=== PATIENT | male | born 1995 | race Caucasian/White ===

== ENCOUNTER 2025-05-11 20:19 | Emergency (ER) | payer MEDICAID, SELFPAY ==
--- NOTE | ~2025-05-11 | XR_ITS ---
CLINICAL HISTORY: Fall; Rib Pain Bilateral Frontal chest and bilateral ribs three views Comparison: None provided Findings: Lungs are clear without acute infiltrates. Heart size is normal. No pneumothorax. No acute fracture or dislocation in the rib cage. No significant focal bony abnormalities. Impression: No significant abnormalities This document has been electronically signed by: Milad Vanegas MD on 05/11/2025 23:19:44
--- NOTE | ~2025-05-11 | CT_ITS ---
CLINICAL HISTORY: Fall; Head Strike CT cervical spine without contrast Comparison: None provided Findings: No acute fracture or dislocation. Posterior alignment is normal. No significant degenerative change. No radiopaque foreign bodies. Impression: No acute processes This document has been electronically signed by: Milad Vanegas MD on 05/11/2025 21:54:37
--- NOTE | ~2025-05-11 | CT_ITS ---
CLINICAL HISTORY: Headache; Fall; Headstrike CT head without contrast Comparison: None provided Findings: No intracranial mass, midline shift, hydrocephalus, or acute hemorrhage. No acute process in sinuses or mastoids. No acute bony abnormality. Impression: No acute intracranial process This document has been electronically signed by: Milad Vanegas MD on 05/11/2025 21:52:58
[2025-05-11 20:29] VITALS: BP 131/86; BP 160/120; PULSE 103; PULSE 108; RESP 19; TEMP 36.9; O2SAT 95; O2SAT 97; BMI 25.2
--- NOTE | 2025-05-11 20:40 | PC.NURSE ---
Patient refused IV line insertion and lab draw. Donte, ED provider made aware.
--- NOTE | 2025-05-11 21:37 | PC.NURSE ---
Patient returned back to ED [address], PD staff at bedside.
[2025-05-11 22:00] VITALS: BP 129/78; PULSE 81; RESP 16; TEMP 36.8; O2SAT 96
--- NOTE | 2025-05-11 23:00 | ED_ITS ---
HPI - General Adult General Chief complaint: General Medical Stated complaint: in PC, tackled by pd, knee/forehead abrasions Time Seen by Provider: 05/11/25 20:58 Source: patient and police Mode of arrival: EMS Limitations: no limitations History of Present Illness ED Provider: Donte MCLAUGHLIN HPI narrative: The patient is a 30-year-old male presenting to the ED via EMS in police custody for evaluation of multiple complaints. The patient reportedly was running from police when he was tackled to the ground resulting in a reported head strike without LOC, patient denies any use of anticoagulants. The patient presents to the ED for evaluation of headache, neck pain, upper back pain, and bilateral ribcage pain. The patient also reports he is feeling nauseous and suffered abrasions to his bilateral knees and right cheek. The patient denies any other recent injury, denies associated chest pain, shortness of breath, fever/chills, vomiting, abdominal pain or other acute complaint. Patient arrives with cervical collar applied by EMS. Related Data Previous Rx's ?Medication ?Instructions ?Recorded acetaminophen 500 mg capsule 1,000 mg (2 x 500 mg) PO .q8 PRN 05/12/25 fever or pain #30 caps ibuprofen 600 mg tablet 600 mg PO Q8H PRN fever or p ain 05/12/25 #30 tabs Allergies Allergy/AdvReac Type Severity Reaction Status Date / Time No Known Allergies Allergy Verified 05/11/25 20:31 Review of Systems Review of Systems: Yes all other systems are reviewed and are negative PMFSH Social History Social History Smoked in Last 30 Days: Yes Use of substances other than those prescribed or required for medical reasons: No Advance Directives: No Advance Directives Information Provided: Yes Physical Exam ED Vital Signs: Vital Signs - 24 hr 05/11/25 20:29 05/11/25 22:00 05/12/25 00:00 Temperature 98.4 F 98.2 F 97.7 F Pulse Rate 103 H 81 75 Respiratory Rate 19 16 16 Blood Pressure 131/86 129/78 119/67 Pulse Oximetry 95 96 95 Oxygen Delivery Method Room Air Room Air Room Air BMI result Body Mass Index 25.2 CONSTITUTIONAL: The patient appears non-toxic, well nourished and in no acute distress. Vital signs as documented. HEAD: Atraumatic, normocephalic. EYES: EOMs grossly intact, pupils equal, conjunctiva clear, no exudate. ENT: Nares patent, no discharge. Airway patent, no audible stridor, visible mucosa is pink and moist without noted lesions. NECK: Trachea is midline, no obvious masses or gross abnormalities. CHEST: Symmetric movement, normal appearance. Patient reports generalized tenderness of the bilateral ribcage, there is no appreciated crepitus, flail chest, or other deformity. LUNGS: LS present and CTAB, no w/r/r. Non-labored work of breathing. CARDIAC: Regular Rhythm, S1/S2 appreciated, no murmurs, rubs or gallops. ABDOMEN: Abdomen soft and non-tender x4 quadrants, no palpable masses or organomegaly. : Deferred. EXTREMITIES: Normal tone, moves all extremities spontaneously without reported pain. There are superficial abrasions noted to the bilateral inferior knees, distal CSM intact, no other obvious acute injury or deformity noted. NEURO: Alert and oriented x3, CN II-XII appear grossly intact. Cerebellar Functioning grossly intact. No obvious sensory or motor deficits. Speech clear and appropriate. PSYCH: Slightly agitated affect, but otherwise with appropriate eye contact, fluid speech, with appropriate response to questioning. No reported suicidality or homicidality. SKIN: Warm, dry, color appropriate, normal turgor. No rashes noted. Medical Decision Making Medical Decision Making MDM Narrative: 11:04 PM 05/11/2025 (Hu MCLAUGHLIN): The patient is a 30-year-old male presenting to the ED via EMS in police custody for evaluation of multiple complaints after being tackled to the ground while running from the police. The patient reports headache, neck pain, bilateral rib pain, and abrasions to the bilateral superior shins. The patient is agitated on exam, but ultimately cooperative. Patient's exam reveals no crepitus of the chest or sternum, no adventitious lung sounds. The patient is moving all extremities. Of note the patient at 1 time began shaking diffusely and rolling onto his side, this provider was at bedside for this incident and patient was breathing throughout this tremulous activity, no urinary incontinence, biting of the tongue, or DVT and gaze with the eyes. The patient was actively fighting opening of the eyelids, and volitionally looking away from this provider during the shaking activity. The patient was on SpO2 during the activity and oxygen saturation never dropped below 95%. Shortly after reassurance by staff, the patient is shaking activity stopped and patient began yelling that he wanted to be moved away from the officers because he did not like them. The patient's episode was consistent with attempted malingering/in-person nation of seizure activity, there was no evidence of true tonic-clonic activity, no postictal period, no concern for seizure. The patient is symptoms were evaluated with CT head and neck which at this time have resulted and showed no evidence of acute intracranial pathology, no acute fracture throughout. The patient's rib x-rays have been obtained and are awaiting interpretation. The patient has had no additional shaking since the initial episode. 11:56 PM 05/11/2025 (Hu MCLAUGHLIN): Patient's rib films are negative for acute fracture. The patient is likely suffering from abrasions, bumps, and bruises. The patient will be discharged to police custody with instructions to follow up with PCP when able. Admission/Observation Consideration of admission/observation: Escalation of care including admission/observation considered Radiology Impression Discussion of test interpretation with radiology: I have reviewed the radiologist's reading. Radiologist Impression: CLINICAL HISTORY: Headache; Fall; Headstrike CT head without contrast Comparison: None provided Findings: No intracranial mass, midline shift, hydrocephalus, or acute hemorrhage. No acute process in sinuses or mastoids. No acute bony abnormality. Impression: No acute intracranial process This document has been electronically signed by: Milad Vanegas MD on 05/11/2025 21:52:58 CLINICAL HISTORY: Fall; Head Strike CT cervical spine without contrast Comparison: None provided Findings: No acute fracture or dislocation. Posterior alignment is normal. No significant degenerative change. No radiopaque foreign bodies. Impression: No acute processes This document has been electronically signed by: Milad Vanegas MD on 05/11/2025 21:54:37 CLINICAL HISTORY: Fall; Rib Pain Bilateral Frontal chest and bilateral ribs three views Comparison: None provided Findings: Lungs are clear without acute infiltrates. Heart size is normal. No pneumothorax. No acute fracture or dislocation in the rib cage. No significant focal bony abnormalities. Impression: No significant abnormalities This document has been electronically signed by: Milad Vanegas MD on 05/11/2025 23:19:44 Prescription Management I considered prescription management with: Pain Medication Discharge Plan Discharge Clinical Impression: Abrasion of lower extremity without infection Contusion Qualifiers: Encounter type: initial encounter Contusion area: thoracic wall Front or back of thoracic wall: front Thoracic wall location detail: bilateral Qualified Code(s): S20.213A - Contusion of bilateral front wall of thorax, initial encounter Patient Disposition: Home, Self-Care Instructions: Abrasion (ED), Bone Bruise (ED) Additional Instructions: Thank you for choosing [facility]'s Emergency Department for your care today. Thankfully your CT of your head and neck today, as well as your x-ray of your ribs shows no evidence of acute fracture or intracranial injury. Your injuries appear limited to abrasions and contusions. At this time there is no evidence of an acute process requiring admission to the hospital or continued ED observation, and it is safe to discharge you. You may take alternating (staggered) doses of ibuprofen 600mg and Tylenol 1000mg every 4 hours as needed for any additional pain. Please rest any injured areas, and apply ice for 20 minutes every hour. Please stay well hydrated and get plenty of rest. Please follow up with your primary care physician for re-evaluation, additional management of your symptoms, and continued preventative care. If you do not have a primary care physician, please call the [facility] at [phone] to establish a new primary care physician. While waiting to establish your new primary care physician, you can call our [facility] at [phone] for non-emergency needs. Please return to the emergency department if you develop a severe or sudden change in your symptoms, a fever over 100.4 that does not improve with Tylenol or Ibuprofen, recurrent vomiting, or any other new or worsening symptoms or concerns. Prescriptions: New ibuprofen 600 mg tablet 600 mg PO Q8H PRN (Reason: fever or pain) Qty: 30 0RF acetaminophen 500 mg capsule 1,000 mg PO .q8 PRN (Reason: fever or pain) Qty: 30 0RF Print Language: Albanian
[2025-05-12] VITALS: BP 119/67; PULSE 75; RESP 16; TEMP 36.5; O2SAT 95
[2025-05-12 02:00] VITALS: BP 123/72; PULSE 86; RESP 16; TEMP 36.7; O2SAT 98
== END 2025-05-12 02:37 | disposition home or self-care (01) ==
PROVIDERS: Emergency Provider Internal Medicine
DX: S20.213A Contusion of bilateral front wall of thorax, initial encounter (principal); S80.212A Abrasion, left knee, initial encounter; S80.211A Abrasion, right knee, initial encounter; S00.81XA Abrasion of other part of head, initial encounter; Y35.813A Legal intervention involving manhandling, suspect injured, initial encounter; R51.9 Headache, unspecified; M54.2 Cervicalgia; M54.6 Pain in thoracic spine; R07.89 Other chest pain; Y93.02 Activity, running; Y92.414 Local residential or business street as the place of occurrence of the external cause; Y99.9 Unspecified external cause status
CPT/HCPCS: 70450; 71111; 72125; 99284

== ENCOUNTER → 2025-05-11 20:58 | Outpatient (BNV) | payer MEDICAID, SELFPAY | PROVIDERS: Visit Provider Radiology Diagnostic Radiology | DX: S09.90XA Unspecified injury of head, initial encounter (principal); W19.XXXA Unspecified fall, initial encounter | CPT/HCPCS: 70450; 72125 ==